=== PATIENT | male | born 1945 | race Caucasian/White ===

== ENCOUNTER → 2016-11-25 | Day surgery (SDC) | payer MEDICARE ==
[~2016-11-25] MED LIST: AMLO10TA2 PO; ATOR40TA59 PO; FENTANYL PF 100 MCG/2 ML VIAL. IV PRN; HYDROMORPHONE 2 MG/ML VIAL. IV PRN; IV RINGERS,LACTATED 1000ML 1,000 ML IV SCH; LIDOCAINE 1% 1 ML SYRINGE. ID PRN; LIDOCAINE 2% PF Vial for OR 5 ML VIAL. ONE; LISI-334 PO; MORPHINE SULFATE 2 MG/ML DISP.SYRIN. IV PRN; OMEG500C PO; ONDANSETRON PF 4 MG/2 ML VIAL. IV PRN; PROCHLORPERAZINE 10 MG/2 ML VIAL. IV PRN; PROPOFOL 20 ML IV ONE
[2016-11-25 09:42] VITALS: BP 116/68
--- NOTE | 2016-11-26 10:24 | CONS ---
DATE OF CONSULTATION: 11/25/2016 REFERRING PHYSICIAN: Dr. Manoj Ford. HISTORY OF PRESENT ILLNESS: This is a 71-year-old male with past medical history significant for hypertension, hyperlipidemia, is seen for a screening colon exam. Previous colonoscopy was performed approximately 15 years ago, which revealed no abnormalities. Bowel habits are regular without diarrhea or constipation. There is no melena and/or hematochezia. Weight and appetite are stable. He is otherwise without additional complaints. PAST MEDICAL HISTORY: Hypertension, hyperlipidemia. ALLERGIES: None. MEDICATIONS: Amlodipine, atorvastatin, lisinopril and omega 3 fatty acids. FAMILY AND SOCIAL HISTORY: He has history of liver disease with mother. PAST SURGICAL HISTORY: Status post hernia surgery. REVIEW OF SYSTEMS: Per records. PHYSICAL EXAMINATION: GENERAL: Reveals a well-nourished, well-developed male who is alert, cooperative, in no acute distress. VITAL SIGNS: Temperature 98.1, pulse is 60, respirations 18. HEENT: Normocephalic and atraumatic head. Pupils and extraocular muscles not tested. Sclerae anicteric. NECK: Supple. LUNGS: Clear. CARDIOVASCULAR: Reveals an S1, S2 without S3, S4 or appreciable murmur. ABDOMEN: Reveals a soft abdomen. EXTREMITIES: Reveals no cyanosis, clubbing or edema. IMPRESSION: Colorectal screening is warranted at this time. Risks and benefits of procedure including risk of hemorrhage, perforation requiring operation have been discussed with the patient who is willing to proceed at this time. I would like to thank Dr. Ford for allowing us to consult and participate in this patient's care. LINDA AYALA MD DR: ERIC/taylor JOB#: [id number] / [id number]
== END ==
LOC: SURG 07:29
PROVIDERS: ATTEND Internal Medicine Gastroenterology
DX: Z12.11 Encounter for screening for malignant neoplasm of colon (principal); K64.0 First degree hemorrhoids; K57.30 Diverticulosis of large intestine without perforation or abscess without bleeding; I10 Essential (primary) hypertension; E78.00 Pure hypercholesterolemia, unspecified
CPT/HCPCS: 45378; J2704

== ENCOUNTER → 2018-03-08 | Outpatient (CLI) | payer MEDICARE, OTHER | END | disposition home or self-care (01) | LOC: CT 10:30 | DX: K57.30 Diverticulosis of large intestine without perforation or abscess without bleeding (principal); K44.9 Diaphragmatic hernia without obstruction or gangrene; M48.061 Spinal stenosis, lumbar region without neurogenic claudication; M47.896 Other spondylosis, lumbar region; I10 Essential (primary) hypertension; E78.00 Pure hypercholesterolemia, unspecified | CPT/HCPCS: 74176 ==

== ENCOUNTER → 2018-04-05 | Outpatient (CLI) | payer MEDICARE, OTHER ==
[~2018-04-05] MED LIST changes: -AMLO10TA2 PO; -ATOR40TA59 PO; +CONTRAST GIVEN MC; -FENTANYL PF 100 MCG/2 ML VIAL. IV PRN; -HYDROMORPHONE 2 MG/ML VIAL. IV PRN; -IV RINGERS,LACTATED 1000ML 1,000 ML IV SCH; -LIDOCAINE 1% 1 ML SYRINGE. ID PRN; -LIDOCAINE 2% PF Vial for OR 5 ML VIAL. ONE; -LISI-334 PO; -MORPHINE SULFATE 2 MG/ML DISP.SYRIN. IV PRN; -OMEG500C PO; -ONDANSETRON PF 4 MG/2 ML VIAL. IV PRN; -PROCHLORPERAZINE 10 MG/2 ML VIAL. IV PRN; -PROPOFOL 20 ML IV ONE
[2018-04-05 10:22] LABS: BLOOD UREA NITROGEN 17 mg/dL (8-26)
[2018-04-05] MEDS: IOHEXOL 300 MG/ML 100ML VIAL. IV (11:06)
== END | disposition home or self-care (01) ==
LOC: CT 09:42
DX: K57.30 Diverticulosis of large intestine without perforation or abscess without bleeding (principal); K44.9 Diaphragmatic hernia without obstruction or gangrene; I51.7 Cardiomegaly
CPT/HCPCS: 36415; 75635; 82565; 84520

== ENCOUNTER → 2019-12-07 | Outpatient (CLI) | payer MEDICARE ==
[2016-11-25 09:42] VITALS: BP 116/68
[~2019-12-07] MED LIST changes: +AMLO10TA8 PO; +ATOR40TA59 PO; -CONTRAST GIVEN MC; +LISI-334 PO; +OMEG500C PO
--- NOTE | 2019-12-07 08:58 | RAD ---
4 views of the lumbar spine without comparison for lumbago and sciatica, both sides. FINDINGS: No acute osseous or alignment abnormality. There is straightening of the normal lumbar lordosis. There is mild intervertebral disc disease at multiple levels, and there may be grade 1 anterolisthesis of L4 and L5. There is bulky facet arthrosis at L4-5 and L5-S1. Aortic atherosclerosis is seen. No radiographically apparent pars defects are noted. IMPRESSION: 1. Straightening of normal lumbar lordosis with severe facet arthrosis in the lower lumbar levels and mild anterolisthesis of L4 and L5. Electronically signed by: Mikey Hansen MD (12/07/2019 8:55 AM) [facility]
== END | disposition home or self-care (01) ==
LOC: RAD 08:17
PROVIDERS: ATTEND Family Medicine
DX: M43.16 Spondylolisthesis, lumbar region (principal); I70.0 Atherosclerosis of aorta; M40.46 Postural lordosis, lumbar region; M12.88 Other specific arthropathies, not elsewhere classified, other specified site
CPT/HCPCS: 72110

== ENCOUNTER → 2020-01-19 | Outpatient (CLI) | payer MEDICARE ==
[2016-11-25 09:42] VITALS: BP 116/68
--- NOTE | 2020-01-19 12:54 | KCIC ---
EXAMINATION: Magnetic resonance imaging (MRI) of the lumbar spine without contrast 01/19/2020 11:45 AM HISTORY: Degenerative lumbar stenosis. Low back pain into the right leg. Symptoms worse in the last 2 weeks. TECHNIQUE: Multiplanar multi-weighted MRI of the lumbar spine was performed without intravenous contrast using the standard lumbar spine protocol. Contrast information: None administered. COMPARISON: None available. FINDINGS: There is grade 1 anterolisthesis of L4 on L5. There is edema involving the right L4-L5 facet joint. There is congenital narrowing of the spinal canal secondary to shortened pedicles. Vertebral body heights are maintained. Marrow signal intensity is normal in all sequences. Conus medullaris is at L1. Distal spinal cord signal intensity is normal in all sequences. Abdominal aorta is normal in caliber. No suspicious retroperitoneal abnormality is identified. Left renal parapelvic cysts are present. L2-L3: There is a moderate disc bulge with central disc extrusion and annular fissure. Mild facet arthropathy with ligamentum flavum infolding. There is mild to moderate right and mild left neuroforaminal stenosis. Mild narrowing the right lateral recess. L3-L4: There is a moderate disc bulge with left far lateral annular fissure. Mild facet arthropathy. Moderate right and mild left neuroforaminal stenosis. Mild spinal canal stenosis, exacerbated by congenital narrowing of the spinal canal. L4-L5: There is a large circumferential disc bulge with right central and right foraminal disc extrusion. There is severe facet arthropathy, left greater than right. There is severe bilateral neuroforaminal stenosis. Moderate to severe spinal canal stenosis, exacerbated by segmental flavum infolding and congenital narrowing of the spinal canal. Bilateral lateral recess stenosis. L5-S1: There is a disc bulge asymmetric to the right. There is moderate facet arthropathy. Moderate bilateral neuroforaminal stenosis. There is narrowing the right lateral recess. IMPRESSION: Mild to moderate degenerative changes of the lumbar spine as described in detail above. Electronically signed by: Michelle Pavon MD (01/19/2020 12:51 PM) [id number]
== END | disposition home or self-care (01) ==
LOC: KCIC MRI 11:18
PROVIDERS: ATTEND Family Medicine
DX: M48.07 Spinal stenosis, lumbosacral region (principal); M47.816 Spondylosis without myelopathy or radiculopathy, lumbar region; M51.27 Other intervertebral disc displacement, lumbosacral region; M12.88 Other specific arthropathies, not elsewhere classified, other specified site
CPT/HCPCS: 72148

== ENCOUNTER → 2020-02-01 | Outpatient (CLI) | payer MEDICARE ==
[2016-11-25 09:42] VITALS: BP 116/68
[~2020-02-01] MED LIST changes: +IOHEXOL 180 MG/ML 10 ML VIAL. ONE; +methylPREDNISolone ACETATE 40 MG/ML VIAL. ONE; +methylPREDNISolone ACETATE 80 MG/ML VIAL. ONE
--- NOTE | 2020-02-01 11:33 | PAIN ---
DATE OF SERVICE: 02/01/2020 INITIAL CONSULTATION FOR PAIN CLINIC CHIEF COMPLAINT: Low back and bilateral lower extremity pain. HISTORY OF PRESENT ILLNESS: This is a 74-year-old male who presents with history of pain, about 2 years overall, worse over the past 6 months or so, and the pain in the low back, bilateral lower extremities, posterior gluteus, lateral thigh, anterior thigh, medial thigh, medial lower legs, especially on the anterior and lateral thighs. The patient reports changes during the day, worse with walking, standing, changing positions, especially standing in one place for more than about 5-10 minutes. The patient reports when he walks the pain actually decreases slightly, but then it becomes much more fatigable, especially in the right leg greater than the left, but present bilaterally. The patient reports it is better with sitting or lying down, generally does not awaken from sleep at night, does not affect his bowel or bladder control, but does affect his ability to walk; however, he uses a walker if he is going longer distances does not have that with him today. The patient has had physical therapy over the last 2 months as well as doing exercise and stretching. He would be normally swimming regularly while the [employer] has been closed recently. He walks every day regardless, which does decrease the pain to some extent. The patient reports it is still present and again starting to impede his ability to walk further with significant fatigability in the lower extremities, but no loss of motor function. The patient did have an MRI scan of the lumbar spine showing L2-L3 moderate disk bulge with central disk extrusion, annular fissure with [id number] right and mild left neural foraminal stenosis and mild narrowing of the right lateral recess, L3-L4 shows moderate disk bulge with left lateral annular fissure, moderate right and mild left neural foraminal stenosis and mild spinal canal stenosis, L4-L5 shows large circumferential disk bulge with right central and right foraminal disk extrusion with severe facet arthropathy left greater than right with severe bilateral neural foraminal stenosis, [id number] spinal canal stenosis as well. The patient rates his disability from 0-10, 10 being the worst, is a 3 with family home responsibilities, social activity, occupation and self-care, 2 with recreation and sexual behavior and life support activities. The patient reports no complete loss of function, but again significant fatigability with activity, especially standing. PAST MEDICAL HISTORY: Significant for hypertension, arthritis. PAST SURGICAL HISTORY: Previous surgery includes inguinal hernia repair in 2010. Otherwise, the patient has been in very good health. CURRENT MEDICATIONS: Include atorvastatin, lisinopril, amlodipine, and fish oil. ALLERGIES: The patient has no known drug allergies. FAMILY HISTORY: Significant for arthritis in the patient's mother. SOCIAL HISTORY: The patient does not drink alcohol, does not smoke, does not use any illegal, illicit or recreational drugs. He is , lives with his spouse of 55 years and lives locally in [place], [place]. The patient reports he is currently retired. REVIEW OF SYSTEMS: The patient's review of systems is positive for those items mentioned in history of present illness. All systems reviewed and otherwise negative. It is complete, full and well documented on the patient's chart. PHYSICAL EXAMINATION: VITAL SIGNS: The patient's blood pressure is 142/94, pulse 66, respirations 18, temperature 98.3 degrees Fahrenheit. Height is 5 feet 8 inches. Weight is 234 pounds. GENERAL: The patient is awake, alert, oriented, appropriate, very pleasant demeanor. HEENT: Shows normocephalic, atraumatic. Extraocular movements are intact and symmetrical. Oral cavity shows mucous membranes are moist and pink. Dentition is intact. NECK: Shows anterior throat supple without palpable lymphadenopathy noted. Swallow reflex symmetrical. CHEST: Shows normal on inspection. Breath sounds clear to auscultation bilaterally. HEART: Shows S1 and S2 clear. No murmurs auscultated. ABDOMEN: Soft, nontender, nondistended. No palpable organomegaly is noted. No rebound or guarding demonstrated. BACK: Shows spine grossly in the midline, normal appearing thoracic kyphosis, cervical lordotic curvature and lumbar lordotic curvature. Lumbar paraspinous muscle shows symmetrical on inspection, on palpation shows some moderate tenderness diffusely without significant radiation throughout the upper, middle and lower distributions of the paraspinous muscles, but is symmetrical on inspection. No atrophy or hypertrophy. No trigger points. No tenderness of the spinous processes, sacrum or sacroiliac regions. The patient has good rotational motion of the lumbar spine, both laterally greater than 10 degrees right and left as well as extension greater than 10 degrees, forward flexion 45 degrees without significant pain reported. EXTREMITIES: The patient's lower extremities showed deep tendon reflexes at 1+ in the patellar and tendo calcaneus tendons are symmetrical. Peripheral pulses are 1+ posterior tibia. No peripheral edema is noted. NEUROLOGIC: Motor exam is strong with 5/5 dorsiflexion, extension, quadriceps and hamstring flexion and symmetrical. Peripheral pulses again are 1+. Lower extremities are warm and dry to touch, equal in color and appearance. Straight leg raising noted to be negative for reproduction of radicular symptoms bilaterally. Gaenslen's and Joseph's maneuvers are negative bilaterally as well. The patient is able to stand, stand on his toes without significant difficulty or loss of balance, walking with a slight shuffling gait, does not appear interfering with the right or left lower extremity significantly, not using any assistive device such as canes or walkers to ambulate. SKIN: Warm and dry, good turgor. No edema. No sores, rashes or bruising throughout. IMPRESSION: 1. This is a 74-year-old male with about 2-year history of increasing pain, low back, bilateral lower extremities in a radicular fashion. 2. MRI scan of lumbar spine as noted. 3. History of arthritis. PLAN: Options were discussed with the patient including conservative medical managements, physical therapies and interventional techniques. He does physical therapy. He is still doing exercises. He is very active with swimming, walking, etc. He would like to pursue interventional techniques. We discussed a lumbar epidural steroid injection using description as well as anatomical models to describe the procedure. Risks were then discussed including, but not limited to bleeding, infection, possibility of epidural hematoma, subsequent neurological compromise, dural puncture, headaches, spinal cord and/or nerve damage, side effects of steroid medication and poor results regarding pain control. The patient understands and wished to proceed. The patient will return to clinic in approximately 2 weeks for followup. He was counseled on his return appointment, activity level and side effects to be aware. DIAGNOSES: Lumbar radiculopathy with lumbar degenerative disk disease and lumbar spinal stenosis. PROCEDURE: Lumbar epidural steroid injection, translaminar approach at the L4-L5 level using C-arm fluoroscopic guidance under sterile prep and drape using local anesthetic. MEDICATIONS INJECTED: A total of 120 mg of Depo-Medrol plus 10 mL of preservative-free normal saline and 2 mL of contrast. CONDITION AT DISCHARGE: Stable. The patient tolerated the procedure well, had no complications. REAGAN FUNES MD DR: MAURY/taylor JOB#: [id number] / [id number] Jeanine Moore MD
== END | disposition home or self-care (01) ==
LOC: PNCL 09:48
PROVIDERS: ATTEND Anesthesiology
DX: M51.16 Intervertebral disc disorders with radiculopathy, lumbar region (principal); M48.061 Spinal stenosis, lumbar region without neurogenic claudication; M19.90 Unspecified osteoarthritis, unspecified site; I10 Essential (primary) hypertension; Z98.890 Other specified postprocedural states; Z79.899 Other long term (current) drug therapy; Z82.61 Family history of arthritis
CPT/HCPCS: 62323; J1030; J1040; Q9965

== ENCOUNTER → 2020-02-15 | Outpatient (CLI) | payer MEDICARE ==
[2016-11-25 09:42] VITALS: BP 116/68
--- NOTE | 2020-02-15 10:42 | PAIN ---
DATE OF SERVICE: 02/15/2020 PROGRESS NOTE FOR PAIN CLINIC DIAGNOSES: Lumbar radiculopathy with lumbar degenerative disk disease, lumbar spinal stenosis. HISTORY OF PRESENT ILLNESS: The patient appears a 75-year-old male who returns for followup status post lumbar epidural steroid injection x 1. The patient reports about 30% improvement overall in the low back and right greater than left lower extremity. The patient reports he has been increasing his activity with greater ease and comfort, walking greater distances, sleeping better at night, it does not awaken him from sleep. The patient reports still some pain in the low back and bilateral lower extremities, mostly in the lateral thighs, anterior thighs, medial thighs and across the low back. The patient reports it as just discomfort, does not describe it as pain with rating of 0 to 10. The patient reports as a 0 for pain, but discomfort in the lower extremities with extended standing. The patient reports no new bowel or bladder incontinence, no new motor or sensory deficits. PHYSICAL EXAMINATION: VITAL SIGNS: The patient's blood pressure is 136/77, pulse 87, respirations are 18, temperature 98.2 degrees Fahrenheit, height is 5 feet 9 inches, weight is 252 pounds. GENERAL: The patient is awake, alert, oriented, appropriate, very pleasant demeanor. HEENT: Shows normocephalic, atraumatic. Extraocular movements are intact and symmetrical. Oral cavity shows mucous membranes moist and pink. Dentition is intact. NECK: Shows anterior throat supple without palpable lymphadenopathy noted. Swallow reflex symmetrical. CHEST: Shows normal on inspection. Breath sounds are clear to auscultation bilaterally. HEART: Shows S1, S2 clear. No murmurs auscultated. ABDOMEN: Soft, obese, nontender, nondistended. BACK: Shows spine grossly in the midline. Slight exaggeration of thoracic kyphosis and minor flattening of lumbar lordotic curvature. Lumbar paraspinous muscle shows symmetrical on inspection, on palpation shows some diffuse tenderness only in the middle and lower distribution of paraspinous muscles bilaterally, but only diffusely without significant radiation. No atrophy, hypertrophy, no trigger points. The patient has good rotational motion of lumbar spine, both laterally greater than 10 degrees right and left as well as extension greater than 10 degrees, forward flexion 45 degrees without significant pain reported. EXTREMITIES: Lower extremities show deep tendon reflexes at 1+ in the patellar and tendo calcaneus tendons. Motor exam is 5/5 with dorsiflexion, extension, quadriceps and hamstring flexion symmetrical. Peripheral pulses are 1+ posterior tibia. No peripheral edema is noted. Options were discussed with the patient. The patient's old chart was reviewed as his current medication regimen updated. Current review of systems updated today as well. We will proceed with a second in the series of lumbar epidural steroid injection today with fluoroscopic guidance. Risks were again discussed including, but not limited to bleeding, infection, possibility of epidural hematoma, subsequent neurological compromise, dural puncture, headaches, spinal cord and/or nerve damage, side effects of steroid medication and poor results regarding pain control. The patient understands and wished to proceed. The patient will return to clinic in approximately 2 weeks for followup. He was counseled on return appointment, activity level and side effects to be aware of. DIAGNOSIS: Lumbar radiculopathy with lumbar degenerative disk disease and lumbar spinal stenosis. PROCEDURE: Lumbar epidural steroid injection, translaminar approach at the L4-L5 level using C-arm fluoroscopic guidance under sterile prep and drape using local anesthetic. MEDICATION INJECTED: A total of 120 mg Depo-Medrol plus 10 mL preservative-free normal saline and 2 mL of contrast. CONDITION AT DISCHARGE: Stable. The patient tolerated the procedure well, had no complications. REAGAN FUNES MD DR: MAURY/taylor JOB#: [id number] / [id number]
== END | disposition home or self-care (01) ==
LOC: PNCL 09:53
PROVIDERS: ATTEND Anesthesiology
DX: M51.16 Intervertebral disc disorders with radiculopathy, lumbar region (principal); M48.061 Spinal stenosis, lumbar region without neurogenic claudication; Z98.890 Other specified postprocedural states
CPT/HCPCS: 62323; J1030; J1040; Q9965

== ENCOUNTER → 2020-02-20 | Outpatient (CLI) | payer MEDICARE ==
[2016-11-25 09:42] VITALS: BP 116/68
[~2020-02-20] MED LIST changes: -IOHEXOL 180 MG/ML 10 ML VIAL. ONE; -methylPREDNISolone ACETATE 40 MG/ML VIAL. ONE; -methylPREDNISolone ACETATE 80 MG/ML VIAL. ONE
--- NOTE | 2020-02-20 11:55 | RAD ---
EXAM: Lumbar spine, flexion and extension; lumbar spine, single view. HISTORY: Pain. COMPARISON: MRI dated 01/19/2020. FINDINGS: Lateral neutral view of the lumbar spine and flexion and extension views of the lumbar spine are obtained. There is grade 1 anterolisthesis of L4 on L5 which measures 6 mm in neutral position and does not appear to change between flexion and extension. There is 3 mm retrolisthesis of L2 on L3 which also does not change between flexion and extension. There is degenerative endplate remodeling, spurring and facet arthropathy at all levels. There is mild anterior wedging of L1 which is likely developmental or degenerative. There is no acute osseous finding. IMPRESSION: 1. Grade 1 anterolisthesis of L4 on L5 and slight retrolisthesis of L2 on L3, both which do not appear to change between flexion and extension. 2. Multilevel degenerative change throughout the lumbar spine, described above. Electronically signed by: Yamini Neri MD (02/20/2020 11:52 AM) [facility]
== END ==
LOC: RAD 11:06
PROVIDERS: ATTEND Neurological Surgery
DX: M47.816 Spondylosis without myelopathy or radiculopathy, lumbar region (principal); M43.16 Spondylolisthesis, lumbar region
CPT/HCPCS: 72020; 72120

== ENCOUNTER → 2020-02-29 | Outpatient (CLI) | payer MEDICARE ==
[2016-11-25 09:42] VITALS: BP 116/68
[~2020-02-29] MED LIST changes: +IOHEXOL 180 MG/ML 10 ML VIAL. ONE; +methylPREDNISolone ACETATE 40 MG/ML VIAL. ONE; +methylPREDNISolone ACETATE 80 MG/ML VIAL. ONE
--- NOTE | 2020-02-29 11:04 | PAIN ---
DATE OF SERVICE: 02/29/2020 PROGRESS NOTE FOR PAIN CLINIC DIAGNOSES: Lumbar radiculopathy with lumbar degenerative disk disease and lumbar spinal stenosis. HISTORY OF PRESENT ILLNESS: The patient is a 75-year-old male who returns for followup status post lumbar epidural steroid injection x 2. The patient reports only minimal decrease in pain, about 20-30% improvement in his low back and bilateral lower extremity pain. The patient reports he has seen a neurosurgeon for evaluation since his last visit, who is recommending continued conservative therapy with injections, but does have an option of surgery in the future if pain is not improved. The patient reports that he would like to hold on any surgical options at this time and would like to proceed with a third injection epidural steroid today. The patient reports still significant pain in the low back, bilateral lower extremities; mostly in the anterior lateral thighs, anterior medial thighs and medial lower legs. The patient reports only real discomfort and soreness when walking a short walk. With sitting and lying down, he has no pain and 0 on a scale of 10, the patient reports his worst pain is about a 2 to a 3 on a scale of 10 at its worst and average and least it is 0. The patient reports still doing well, sleeping well at night, does not awaken him from sleep, better with sitting or lying down, again worse with walking or standing for about 15-20 minutes, but he can sit down or lay down and decrease the pain after about 5 minutes fairly significantly and fairly completely. The patient reports no new changes, no new bowel or bladder incontinence or other complaints. PHYSICAL EXAMINATION: VITAL SIGNS: The patient's blood pressure is 139/95, pulse 77, respirations 18, temperature 98.5 degrees Fahrenheit, height is 5 feet 9 inches, weight is 249 pounds. GENERAL: The patient is awake, alert, oriented, appropriate, very pleasant demeanor. HEENT: Head shows normocephalic, atraumatic. Extraocular movements are intact and symmetrical. Oral cavity shows mucous membranes are moist and pink. Dentition is intact. NECK: Shows anterior throat supple without palpable lymphadenopathy noted. Swallow reflex symmetrical. CHEST: Shows normal on inspection. Breath sounds clear bilaterally. HEART: Shows S1, S2 clear. No murmurs auscultated. ABDOMEN: Obese, soft, nontender, nondistended. BACK: Shows spine grossly in the midline. Normal appearing thoracic kyphosis, some minor flattening of lumbar lordotic curvature. Lumbar paraspinous muscle shows symmetrical on inspection, on palpation shows some moderate tenderness diffusely bilaterally, but only diffusely without significant radiation. The patient has lower extremity deep tendon reflexes at 1+ to patellar and tendo calcaneus tendons are equal. Motor exam is strong with 5/5 dorsiflexion and extension, quadriceps and hamstring flexion is symmetrical. Peripheral pulses are 1+ to posterior tibia. No peripheral edema is noted bilaterally. Options were discussed with the patient. The patient's old chart was reviewed as his current medication regimen updated. Current review of systems updated today as well and we will proceed with a third in the series of lumbar epidural steroid injection today with fluoroscopic guidance. Risks were again discussed including, but not limited to bleeding, infection, possibility of epidural hematoma, subsequent neurological compromise, dural puncture, headaches, spinal cord and/or nerve damage, side effects of steroid medication and poor results regarding pain control. The patient understands and wished to proceed. The patient will return to clinic in approximately 2 weeks for followup. He was counseled on his return appointment, activity level and side effects to be aware of. DIAGNOSES: Lumbar radiculopathy with lumbar degenerative disk disease and lumbar spinal stenosis. PROCEDURE: Lumbar epidural steroid injection with translaminar approach at L4-L5 level using C-arm fluoroscopic guidance under sterile prep and drape using local anesthetic. MEDICATIONS INJECTED: A total of 120 mg Depo-Medrol plus 10 mL of preservative-free normal saline and 2 mL of contrast. CONDITION AT DISCHARGE: Stable. The patient tolerated procedure well and had no complications. REAGAN FUNES MD DR: MAURY/taylor JOB#: [id number] / [id number]
== END ==
LOC: PNCL 09:58
PROVIDERS: ATTEND Anesthesiology
DX: M51.16 Intervertebral disc disorders with radiculopathy, lumbar region (principal); M48.061 Spinal stenosis, lumbar region without neurogenic claudication
CPT/HCPCS: 62323; J1030; J1040; Q9965

== ENCOUNTER → 2020-05-22 | Outpatient (CLI) | payer MEDICARE ==
[2016-11-25 09:42] VITALS: BP 116/68
[~2020-05-22] MED LIST changes: +ASPI81TA59 PO; -IOHEXOL 180 MG/ML 10 ML VIAL. ONE; -methylPREDNISolone ACETATE 40 MG/ML VIAL. ONE; -methylPREDNISolone ACETATE 80 MG/ML VIAL. ONE
[2020-05-22 11:45] LABS: ALBUMIN 3.4 g/dL (3.4-5.0); ALBUMIN/GLOBULIN RATIO 0.9 (1.0-1.7); CALCIUM 8.6 mg/dL (8.5-10.1); CREATININE 1.1 mg/dL (0.7-1.3); GFR 65.1; POTASSIUM 4.1 mmol/L (3.5-5.1); TOTAL BILIRUBIN 0.6 mg/dL (0.2-1.0)
--- NOTE | 2020-05-22 11:45 | EKG ---
[facility] [address] [place] [address] Test Date: 2020-05-22 Test Time: 11:44:22 Pat Name: CHER TODD Department: Room: Gender: [employer] Instructor: NISA Yang : 1945 Requested By: MAURICIO NEELY Order Number: [id number] Reading MD: Hubert Noguera Measurements Intervals [place] Rate: 49 P: 23 NM: 230 QRS: -1 QRSD: 92 T: 1 QT: 432 QTc: 393 Interpretive Statements SINUS BRADYCARDIA PROLONGED NM INTERVAL LEFTWARD AXIS Electronically Signed On 05-24-2020 16:35:46 CDT by Hubert Noguera
[2020-05-22 11:49] LABS: PROTHROMBIN TIME PATIENT 13.4 SEC (11.7-14.0)
== END ==
LOC: SURGPAT 10:59
PROVIDERS: ATTEND Neurological Surgery
DX: Z01.818 Encounter for other preprocedural examination (principal); Z11.59 Encounter for screening for other viral diseases; M43.16 Spondylolisthesis, lumbar region; M48.061 Spinal stenosis, lumbar region without neurogenic claudication; R00.1 Bradycardia, unspecified
CPT/HCPCS: 36415; 80053; 85610; 85730; 87641; 93005; U0003

== ENCOUNTER 2020-05-27 07:35 | Inpatient (IN) | payer MEDICARE ==
[~2020-05-27] VITALS: Ht 172.7 cm; Wt 113.0 kg
[2020-05-27] VITALS (9 sets, daily range): BP systolic 124–156; BP diastolic 67–95
--- NOTE | 2020-05-27 07:20 | PREOP HP ---
DATE OF SERVICE: 05/27/2020 PREOPERATIVE HISTORY AND PHYSICAL DATE OF SURGERY: 05/27/2020. HISTORY OF PRESENT ILLNESS: The patient is a pleasant 75-year-old, who has difficulty with anterior thigh and leg pain. He also reports feelings of weakness and numbness in his anterior thighs. He rates his pain as a 3-4/10. The pain is worse in the evenings and with standing and walking. Sitting or lying down is more comfortable for him. He is not taking any pain medication. He had physical therapy with no benefit. He had 3 lumbar epidural steroid injections, which did give him some relief. PAST MEDICAL HISTORY: Hypertension. PAST SURGICAL HISTORY: He has had a hernia repair in the past. FAMILY HISTORY: Cancer. SOCIAL HISTORY: Retired. . Does not smoke. Does not drink alcohol. ALLERGIES: No known drug allergies. CURRENT MEDICATIONS: Atorvastatin, amlodipine, lisinopril, fish oil, aspirin, omega 3. REVIEW OF SYSTEMS: A 12-point review of systems was obtained and is noncontributory except for that mentioned above. PHYSICAL EXAMINATION: NEUROSURGERY EXAMINATION: GENERAL APPEARANCE: Alert, pleasant, no acute distress. HEAD: Normocephalic and atraumatic. SKIN: Warm and dry. MUSCULOSKELETAL: Lumbar paraspinal muscle bulk is normal, restricted range of motion of the lumbar spine, [id number] tenderness of the lumbar lower spine with palpation, normal range of motion of the lower extremities bilaterally. EXTREMITIES: No clubbing, cyanosis, or edema. NEUROLOGIC: Alert and oriented x 3. Normal recent and remote memory. Strength 5/5 in bilateral lower extremities. Sensory was intact to light touch in bilateral lower extremities. Reflexes are present and symmetric in lower extremities bilaterally. Negative straight leg raising bilaterally. Normal gait. IMAGING: I reviewed his lumbar MRI scan from 01/19/2020. On that study, there are tako-[id number]-[id number] degenerative changes throughout the lumbar spine. The principal abnormalities are at L4-L5, where there is a grade 1 anterolisthesis along with moderate canal stenosis, especially at the lateral recess and subarticular regions. He also had severe bilateral foraminal narrowing at this level, worse on the right side. I also reviewed lumbar flexion and extension x-rays. There is a grade 1 anterolisthesis of L4 on L5. ASSESSMENT/ PLAN: He has failed to improve significantly with conservative measures including physical therapy and lumbar epidural steroid injections. We reviewed surgical recommendations, which would include a laminectomy at L4-L5 with posterior instrumentation, posterolateral fusion, and interbody fusion. He understands with the rationale, technique, risks, and expected postoperative course. He understands and would like to proceed. We will make the arrangements. He understands. MAURICIO NEELY MD DR: THERESA/taylor JOB#: [id number] / [id number] [id number]
[~2020-05-27 07:35] MED LIST changes: +HYDROmorphone 2 MG/ML VIAL IV PRN; +IV RINGERS,LACTATED 1000ML 1,000 ML IV SCH; +LIDOCAINE 1% PF 2 ML VIAL. ID PRN; +MORPHINE SULFATE 2 MG/ML VIAL. IV PRN; +ONDANSETRON PF 4 MG/2 ML VIAL. IV PRN; +PROCHLORPERAZINE 10 MG/2 ML VIAL. IV PRN; +fentaNYL PF VIAL 100 MCG/2 ML VIAL IV PRN
[2020-05-27] MEDS ORDERED: BACITRACIN 50,000 UNIT in IV NORMAL SALINE 1000ML BAG 1,000 ML IRR ONE (08:00)
[2020-05-27 08:30] LABS: BASO % 0 % (0-3); EOS # 0.2 x10^3/uL (0.0-0.7); EOS % 3 % (0-3); HEMATOCRIT 42.9 % (39.0-53.0); HEMOGLOBIN 14.7 g/dL (13.0-17.5); LYMPH # 1.6 x10^3/uL (1.0-4.8); LYMPH % 24 % (24-48); MEAN CORPUSCULAR HEMOGLOBIN 33 pg (25-35); MEAN CORPUSCULAR HGB CONC 34 g/dL (31-37); MEAN CORPUSCULAR VOLUME 95 fL (79-100); MONO # 0.8 x10^3/uL (0.0-1.1); MONO % 12 % (0-9); NEUT % 60 % (31-73); PLATELET COUNT 187 x10^3/uL (140-400); RED BLOOD COUNT 4.54 x10^6/uL (4.30-5.70); WHITE BLOOD COUNT 6.7 x10^3/uL (4.0-11.0)
--- NOTE | 2020-05-27 08:55 | RAD ---
EXAM: Lumbar spine CT without contrast. HISTORY: Radiculopathy. TECHNIQUE: Computed tomographic images of the lumbar spine were obtained without contrast. Multiplanar reformatting was performed. *One or more of the following individualized dose reduction techniques were utilized for this examination: 1. Automated exposure control. 2. Adjustment of the mA and/or kV according to patient size. 3. Use of iterative reconstruction technique. COMPARISON: MRI dated 01/19/2020. FINDINGS: There is grade 1 anterolisthesis of L4 on L5, measuring 5 mm. There is 2 mm retrolisthesis of L2 on L3. There is degenerative endplate remodeling at all levels. There is vacuum phenomenon within the disc space at L4-L5. There is no fracture or suspicious lytic or sclerotic osseous lesion. There are few tiny benign bone islands. There is right basilar atelectasis. There is aortobiiliac atherosclerosis. 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 At L1-L2, there is a disc bulge and endplate remodeling. There is mild bilateral facet arthropathy. There is mild central canal stenosis. At L2-L3, there is a disc bulge and endplate osteophytosis. There is mild bilateral facet arthropathy. There is mild retrolisthesis. There is mild left foraminal stenosis. There is mild central canal stenosis. At L3-L4, there is a disc bulge and endplate osteophytosis. There is mild right and moderate left facet arthropathy. There is mild bilateral foraminal stenosis. There is mild central canal stenosis. At L4-L5, there is a right lateral recess to foraminal disc protrusion with 5 and superior extrusion superimposed on a disc bulge and endplate osteophytosis. There is severe bilateral facet arthropathy. There is grade 1 anterolisthesis. There is severe bilateral foraminal stenosis. There is moderate to severe central canal stenosis. At L5-S1, there is a disc bulge and endplate osteophytosis. There is severe bilateral facet arthropathy. There is severe right and moderate to severe left foraminal stenosis. There is mild central canal stenosis. IMPRESSION: 1. Multilevel degenerative change involving the lumbar spine, described in detail above. This is associated with mild central canal stenosis at L1-L2, mild left foraminal and central canal stenosis at L2-L3, mild bilateral foraminal and central canal stenosis at L3-L4, severe bilateral foraminal and moderate to severe central canal stenosis at L4-5, and severe right and moderate to severe left foraminal and mild central canal stenosis at L5-S1. These findings are similar compared to the prior MRI, allowing for differences in imaging modality. 2. Grade 1 anterolisthesis of L4 and L5 and slight retrolisthesis of L2 on L3. Electronically signed by: Yamini Neri MD (05/27/2020 8:53 AM) [id number]
[2020-05-27] MEDS ORDERED: PROPOFOL 200 ML IV ONE (09:15)
[2020-05-27] MEDS ORDERED: ONDANSETRON PF 4 MG/2 ML VIAL. ONE (09:24)
[2020-05-27] MEDS ORDERED: LIDOCAINE 2% PF 5 ML VIAL. ONE (09:24)
[2020-05-27] MEDS ORDERED: PROPOFOL 10 MG/ML (20ML) VIAL. IV ONE (09:24)
[2020-05-27] MEDS ORDERED: REMIFENTANIL 2 MG VIAL. IV ONE ×3 (09:24→14:20)
[2020-05-27] MEDS ORDERED: fentaNYL PF VIAL 100 MCG/2 ML VIAL ONE ×2 (09:24→17:36)
[2020-05-27] MEDS ORDERED: ROCURONIUM 50 MG/5 ML VIAL. ONE (09:24)
[2020-05-27] MEDS ORDERED: DEXAMETHASONE SOD PHOS 4 MG/ML VIAL ONE (09:24)
[2020-05-27] MEDS ORDERED: BUPIVACAINE-EPI 0.5%-1:200000 MPF 30 ML VIAL. ONE (09:27)
[2020-05-27] MEDS ORDERED: THROMBIN TOPICAL 20,000 UNIT SPRAY.SYRN KIT TP ONE (09:27)
[2020-05-27] MEDS ORDERED: KETOROLAC 60 MG/2 ML VIAL. ONE (09:27)
[2020-05-27] MEDS ORDERED: GELATIN SPONGE SIZE 100. ONE (09:27)
[2020-05-27] MEDS ORDERED: PHENYLEPHRINE 10 MG/ML VIAL. ONE ×2 (09:31→13:30)
[2020-05-27] MEDS ORDERED: GLYCOPYRROLATE 1 MG/5 ML VIAL. ONE ×2 (10:56→12:55)
[2020-05-27] MEDS ORDERED: fentaNYL PF VIAL 100 MCG/2 ML VIAL IVP PRN (12:00)
[2020-05-27] MEDS ORDERED: CALCIUM CARBONATE 500 MG TAB.CHEW PO PRN (12:00)
[2020-05-27] MEDS ORDERED: MAGNESIUM HYDROXIDE 2,400 MG/30 ML ORAL.SUSP. PO PRN (12:00)
[2020-05-27] MEDS ORDERED: NALOXONE 0.4 MG/ML VIAL. IV PRN (12:00)
[2020-05-27] MEDS ORDERED: oxyCODONE/APAP 5/325 1 TAB TABLET PO PRN (12:00)
[2020-05-27] MEDS ORDERED: METHOCARBAMOL 750 MG TABLET PO PRN (12:00)
[2020-05-27] MEDS ORDERED: 0.9 % SODIUM CHLORIDE 10 ML DISP.SYRIN. IV PRN (12:00)
[2020-05-27] MEDS ORDERED: diphenhydrAMINE HCL 25 MG CAPSULE PO PRN (12:00)
[2020-05-27] MEDS ORDERED: MAG HYDROX/ALUMINUM HYD/SIMETH 30 ML ORAL.SUSP PO PRN (12:00)
[2020-05-27] MEDS ORDERED: ACETAMINOPHEN 325 MG TABLET. PO PRN (12:00)
[2020-05-27] MEDS ORDERED: PROPOFOL 50 ML IV ONE ×2 (14:55→15:57)
[2020-05-27] MEDS ORDERED: ePHEDrine PF IN SALINE 50 MG/10 ML SYRINGE. IV ONE (16:12)
[2020-05-27] MEDS: fentaNYL PF VIAL 100 MCG/2 ML VIAL IV PRN ×4 (17:38→18:05)
--- NOTE | 2020-05-27 18:10 | NUR ---
Received from PACU per bed, alert/oriented, states discomfort level 5/10, ice for comfort, noted bloody drainage on sm dressing, midline dressing clean, dry & intact, ANDRES, bilateral lower extremities slightly weaker, bilateral TENZIN hose, WESLEY in place oxygen at 2L/nc, spouse at bedside, oriented to surroundings, HOB elevated, refused evening meal, call light within reach, side rails up x2
[2020-05-27] MEDS: ceFAZolin SODIUM IV Push 1 GM VIAL. IVP SCH (20:57)
[2020-05-27] MEDS: POTASSIUM CL 20MEQ D5-0.45NACL 1,000 ML IV SCH (20:58)
[2020-05-27] MEDS: DOCUSATE SODIUM 100 MG CAPSULE. PO SCH (20:58)
[2020-05-27] MEDS: oxyCODONE/APAP 5/325 1 TAB TABLET PO PRN (20:59)
[2020-05-27] MEDS ORDERED: ATORVASTATIN CALCIUM 40 MG TABLET. PO SCH (21:00)
[2020-05-28 03:00] VITALS: BP 127/62
[2020-05-28] MEDS: ceFAZolin SODIUM IV Push 1 GM VIAL. IVP SCH ×2 (04:07→11:39)
[2020-05-28 07:00] VITALS: BP 145/67
[2020-05-28] MEDS: DOCUSATE SODIUM 100 MG CAPSULE. PO SCH (08:21)
[2020-05-28] MEDS ORDERED: amLODIPine BESYLATE 10 MG TABLET PO SCH (09:00)
[2020-05-28] MEDS ORDERED: ASPIRIN CHEWABLE 81 MG TABLET. PO SCH (09:00)
[2020-05-28] MEDS ORDERED: LISINOPRIL 20 MG TABLET PO SCH (09:00)
[2020-05-28] MEDS: oxyCODONE/APAP 5/325 1 TAB TABLET PO PRN (09:34)
[2020-05-28] MEDS: POTASSIUM CL 20MEQ D5-0.45NACL 1,000 ML IV SCH (09:50)
[2020-05-28 10:29] VITALS: BP 134/71
[2020-05-28] MEDS ORDERED: METH750T2 PO (13:21)
[2020-05-28] MEDS ORDERED: DOCU-153 PO (13:21)
[2020-05-28] MEDS ORDERED: OXYC1TAB15 PO (13:21)
--- NOTE | 2020-05-28 13:25 | DISCH ---
DISCHARGE INSTRUCTIONS Condition on Discharge Condition on Discharge: Stable Activity After Discharge Activity Instructions for Disc: Activity as tolerated, Avoid exertion Bathing Instructions: Shower-keep dressing dry Lifting Instructions after Dis: No heavy lifting, No pulling or pushing, Do not lift >10 pounds Driving Instructions after Dis: No driving for 2 weeks Diet after Discharge Additional Diet Restrictions: resume home diet Wound Incision Care Wound/Incision Care: Ice to area for comfort Contacting the after DC Call your doctor for: Concerns you may have Follow-Up Follow up with: Dr. Neely's nurse in 2 weeks [phone] MAURICIO NEELY MD May 28, 2020 13:25
[2020-05-28 14:23] VITALS: BP 109/43
--- NOTE | 2020-05-28 15:25 | NUR ---
Pt. discharged to home with Rx and LSO brace from [facility]. Verbalized understanding of discharge instructions. Back dressing changed, dressing change supplies sent home with pt. Pt. sent home with Dr. Srivastava's post op d/c instructions.
--- NOTE | 2020-05-29 17:07 | PATHOLOGY ---
[facility] Accession Number: [id number] . 01 Material submitted: . vertebral column - LUMBAR DECOMPRESSION AND DISC . 01 Clinical history: . Lumbar stenosis, radiculopathy, spondylolisthesis . 02 Diagnosis: Segments of fibrocartilaginous and fibroadipose tissue and bone, lumbar decompression and disc: - Degenerative changes of fibrocartilaginous tissue. ([facility] 05/29/2020) [facility] 05/29/2020 1528 Local . 02 Comment: There is no evidence of an acute inflammatory process or malignancy. ([facility] 05/29/2020) . 02 Electronically signed: . Taqueria Bocanegra MD, Pathologist NPI- [id number] . 01 Gross description: . The specimen is received in formalin, labeled "Grey Kevin, lumbar disc and decompression". Received is a moderate amount of white-posey fibrous, gritty tissue admixed with small fragments of bone measuring 4.8 x 4.6 x 0.9 cm in aggregate dimensions. The specimen is submitted representatively in cassette A1, following decalcification. ([facility]; 05/28/2020) QAC/QA 05/28/2020 1832 Local . 02 Pathologist provided ICD-10: M51.36 . 02 CPT . 294868, [id number] Specimen Comment: A courtesy copy of this report has been sent to [phone], [phone] Specimen Comment: [id number] Specimen Comment: Report sent to / DR GONGORA Specimen Comment: A duplicate report has been generated due to demographic updates. Performed at: [address], [place], [place] [id number] MD Abel Thakkar MD Phone: [phone] Performed at: 02 [facility] [address], [place] [id number] MD Taqueria Bocanegra MD Phone: [phone]
--- NOTE | 2020-06-04 19:04 | OP ---
DATE OF SURGERY: 05/27/2020 PREOPERATIVE DIAGNOSES: Lumbar spinal stenosis, L4-L5 with grade 1 anterolisthesis at L4-L5 and severe radicular symptoms. POSTOPERATIVE DIAGNOSES: Lumbar spinal stenosis, L4-L5 with grade 1 anterolisthesis at L4-L5 and severe radicular symptoms. OPERATION PERFORMED: Lumbar laminectomy, L4-L5, posterior instrumentation, L4-L5 and posterolateral fusion, L4-L5, anterior diskectomy, L4-L5 with placement of interbody fusion cage packed with allograft bone. The operation was done with EMG monitoring, SSEP monitoring, stimulated EMG monitoring, fluoroscopy, microscopic dissection, BrainLAB guidance. INTERNATIONAL FLIGHT ATTENDANT: CONNIE Yadav assisted with the surgery. She assisted with the exposure, the instrumentation, the decompression, anterior operation as well as closure. OPERATIVE INDICATIONS: The patient is a pleasant 75-year-old who developed problems with intractable back and bilateral lower extremity pain, which was debilitating. He had the above-mentioned findings on imaging studies and I recommended an instrumented lumbar fusion, combined with the decompression. He understood the surgery and risks and wished to go ahead. DESCRIPTION OF PROCEDURE: Following general endotracheal anesthesia, the patient was positioned prone on the Inocente table. Lumbar region prepped and draped in standard fashion. TENZIN hose and AV impulse boots were applied for DVT prophylaxis. A microscope was draped. Fluoroscopy was draped and brought into field. Monitoring was established. Ancef 2 grams were given less than 1 hour prior to initiation of the surgery. Using fluoroscopic guidance, a midline incision was made extending from superior L4 to inferior L5, dissected down through skin and subcutaneous tissue and reflected the paraspinal muscles to the left and placed a microdisk retractor. I exposed the facets and the transverse processes. I drilled in the posterior aspect of the facets using BrainLAB guidance in addition to anatomic landmarks. I passed the black ball, followed by ball tip probe, followed by tap, followed by screw placement at L4 and L5 and during this time, I also aspirated 20 mL of bone marrow from the left iliac crest and mixed this with allograft bone, which was then packed into the left lateral gutter after excoriated the lateral facets and the transverse processes of L4 and L5. The screws were placed. The ethan was placed, nuts were applied, but the system was not yet torqued. I then went to the right side, placed a self-retaining retractor and in a similar fashion, drilled into the posterior aspects of the facets over the pedicles of L4 and L5 and then passed the black ball, followed by the ball tip probe, followed by tap in L4-L5. I did cover these openings with bone wax. I did excoriate laterally and placed allograft and autograft bone into the right lateral gutter. I then brought in the microscope and drilled a generous hemilaminotomy and then crossed to the contralateral side and drilled a laminectomy at L4-L5, trimmed away very thickened ligamentum flavum and decompressed both the L4 root as well as the L5 root by decompressing the neural foramen. I made an incision on the right flank and passed the BrainLAB down to dock at the superior aspect of the pedicle of L5, just along the lateral edge of the pedicle and entering the disk space with K-wire and then through this, I passed the dilator, followed by the working channel and through the working channel, I performed a diskectomy at L4-L5. I then removed the working channel and after I placed the shield to protect the root, I placed a 9 mm interbody fusion cage, which was packed with allograft bone. Prior to that, I did pack allograft bone into the disk space. Once the cage was in the disk space, I released the cage and a film showed perfect positioning of the cage. I then removed the lateral shield and after irrigating and then went back to the midline and placed the screws using the [place] system into L4 and L5. Ethan was placed. Nuts were placed. I did compress very gently and torqued the system on the right side, followed by torquing the system on the left side and this was done in a sequential fashion and I assured myself that the hardware was perfectly oriented. I irrigated copiously. Fluoroscopic images looked quite good. I closed the wound in layers with absorbable suture and the skin was closed with 4-0 subcuticular stitch with frequent irrigation after each layer. The skin was closed with 4-0 subcuticular stitch. I felt the operation went very well. The patient was awakened uneventfully, taken to recovery room in excellent condition. I was quite pleased with the surgery. MAURICIO NEELY MD DR: THERESA/taylor JOB#: [id number] / [id number]
== END 2020-05-28 15:25 | disposition home or self-care (01) | DRG 460 ==
LOC: OPSVCIP 07:35 → 4 NORTH 18:21
PROVIDERS: ADMIT Neurological Surgery; ATTEND Neurological Surgery
PROC: 0SB20ZZ Excision of Lumbar Vertebral Disc, Open Approach (ICD-10-PCS; 2020-05-27)
PROC: 01NB0ZZ Release Lumbar Nerve, Open Approach (ICD-10-PCS; 2020-05-27)
PROC: 4A11X4G Monitoring of Peripheral Nervous Electrical Activity, Intraoperative, External Approach (ICD-10-PCS; 2020-05-27)
PROC: 07DR0ZZ Extraction of Iliac Bone Marrow, Open Approach (ICD-10-PCS; 2020-05-27)
PROC: 0SG00AJ Fusion of Lumbar Vertebral Joint with Interbody Fusion Device, Posterior Approach, Anterior Column, Open Approach (ICD-10-PCS; principal; 2020-05-27 10:00)
DX: M48.062 Spinal stenosis, lumbar region with neurogenic claudication (principal); M43.16 Spondylolisthesis, lumbar region; I10 Essential (primary) hypertension; M54.16 Radiculopathy, lumbar region; Z79.899 Other long term (current) drug therapy
CPT/HCPCS: 36415; 72131; 76000; 85025; 86850; 86900; 86901; 88304; 88311; C1713; J0690; J1100; J1885; J2370; J2405; J2704; J3010; J3480; J3490; J7120; 97116-GP; 97530-GP; G0378

== ENCOUNTER → 2020-08-19 | Outpatient (CLI) | payer MEDICARE, OTHER ==
[~2020-08-19] MED LIST changes: +AMLO-187 PO; -AMLO10TA8 PO; +DOCU-153 PO; -HYDROmorphone 2 MG/ML VIAL IV PRN; -IV RINGERS,LACTATED 1000ML 1,000 ML IV SCH; -LIDOCAINE 1% PF 2 ML VIAL. ID PRN; +METH750T2 PO; -MORPHINE SULFATE 2 MG/ML VIAL. IV PRN; -ONDANSETRON PF 4 MG/2 ML VIAL. IV PRN; +OXYC1TAB15 PO; -PROCHLORPERAZINE 10 MG/2 ML VIAL. IV PRN; -fentaNYL PF VIAL 100 MCG/2 ML VIAL IV PRN
--- NOTE | 2020-08-19 11:55 | RAD ---
2 views lumbar spine without comparison for lumbar fusion. FINDINGS: There are changes of pedicle screw and quinn fixation of L4 and L5 with intervertebral disc spacer. There is grade 1 anterolisthesis of L4 and L5. Facet arthrosis is seen in the lower lumbar levels as well. No alignment abnormality. No fracture or acute osseous or alignment abnormality. IMPRESSION: 1. Postsurgical changes at L4-5 as described. No acute abnormality. Electronically signed by: Mikey Hansen MD (08/19/2020 11:52 AM) [id number]
== END ==
LOC: RAD 09:25
PROVIDERS: ATTEND Neurological Surgery
DX: M47.816 Spondylosis without myelopathy or radiculopathy, lumbar region (principal); M43.16 Spondylolisthesis, lumbar region; Z98.1 Arthrodesis status
CPT/HCPCS: 72100